=== PATIENT | male | born 1985 ===

== ENCOUNTER 2020-03-02 06:02 | Emergency (ER) | payer BC ==
[2020-03-02] MEDS ORDERED: fentaNYL 50 MCG/ML SDV IVPUSH ONE (06:23)
[2020-03-02] MEDS ORDERED: Acetaminophen 500 MG Tab PO ONE (06:23)
[2020-03-02] MEDS ORDERED: Sodium Chloride 0.9% 2.5 ML Syringe FLUSH PRN (06:23)
[2020-03-02] MEDS ORDERED: Sodium Chloride 0.9% 10 ML SDV IV PRN (06:23)
[2020-03-02] MEDS ORDERED: Ketorolac 30 MG/ML SDV IVPUSH ONE (06:23)
[2020-03-02] MEDS ORDERED: Sodium Chloride 0.9% 10 ML Syringe FLUSH PRN (06:23)
[2020-03-02] MEDS ORDERED: Lactated Ringers 1,000 ML IV ONE (06:25)
--- NOTE | 2020-03-02 06:31 | EDM.PDOC ---
<Flakita Spencerian - Last Filed: 03/02/20 07:09> ED HPI GENERAL MEDICAL PROBLEM - General Chief Complaint: Genitourinary Problem Stated Complaint: BACK PAIN, TESTICULAR PAIN Time Seen by Provider: 03/02/20 06:05 Source of Information: Reports: Patient History Limitations: Reports: No Limitations - History of Present Illness INITIAL COMMENTS - FREE TEXT/NARRATIVE: 35-year-old male past medical history of appendectomy presenting with right flank pain. Reports a 3 to 4-day history of right flank pain. Onset gradual, intermittent character. At times he is totally pain-free. Went to bed without any pain and then woke up with right flank pain around 1 hour prior to arrival, radiating into the right groin and testicle. Worse with movement, better with rest. No history of prior pain like this. Rated as 9 out of 10. Reports associated urinary difficulty. Denies fever, chills, nausea, hematuria, urethral discharge, genital swelling or lesions, lower extremity numbness or weakness, gait difficulties. No history of trauma, no history of rash. Took 2 ibuprofen tablets prior to arrival. Denies history of autoimmune disease, immunosuppression, recent steroid use, history of malignancy. right flank Pain Score (Numeric/FACES): 7 - Related Data Allergies Allergy/AdvReac Type Severity Reaction Status Date / Time No Known Allergies Allergy Verified 03/02/20 06:11 Home Meds: Home Meds Morphine Sulfate 15 mg PO QID PRN 3 Days #13 tablet 03/02/20 [Rx] Prochlorperazine Maleate [Compazine] 10 mg PO TID PRN #30 tablet 03/02/20 [Rx] Psyllium Husk (With Sugar) [Metamucil Powder] 2 tbsp PO TID 14 Days #1042 powder 03/02/20 [Rx] Sulindac [Clinoril] 200 mg PO BIDMEALS #60 tab 03/02/20 [Rx] Tamsulosin [Tamsulosin 24 Hr] 0.4 mg PO BID 7 Days #14 cap.er 03/02/20 [Rx] Past Medical History Other Gastrointestinal History: Appendectomy - Infectious Disease History Infectious Disease History: Reports: Chicken Pox - Past Surgical History GI Surgical History: Reports: Appendectomy Social & Family History - Family History Family Medical History: Noncontributory - Tobacco Use Smoking Status *Q: Former Smoker Used Tobacco, but Quit: Yes Month/Year Tobacco Last Used: 2004 - Caffeine Use Caffeine Use: Reports: Tea - Recreational Drug Use Recreational Drug Use: No ED ROS GENERAL - Review of Systems Review Of Systems: See Below Constitutional: Denies: Fever, Chills HEENT: Reports: No Symptoms Respiratory: Denies: Shortness of Breath Cardiovascular: Denies: Chest Pain GI/Abdominal: Denies: Abdominal Pain, Black Stool, Bloody Stool, Diarrhea, Hematemesis, Hematochezia, Nausea, Vomiting : Reports: Flank Pain. Denies: Discharge, Dysuria, Frequency, Hematuria, Incontinence, Urgency Musculoskeletal: Reports: No Symptoms Skin: Denies: Rash Neurological: Denies: Numbness, Tingling, Difficulty Walking, Weakness, Gait Disturbance Psychiatric: Reports: No Symptoms Hematologic/Lymphatic: Reports: No Symptoms Immunologic: Reports: No Symptoms ED EXAM, RENAL/ - Physical Exam Exam: See Below Text/Narrative:: Vital signs reviewed. Nursing notes reviewed. Constitutional: Awake, alert, non-distressed. Head: Normocephalic, atraumatic. Eyes: EOMI, conjunctiva normal, no discharge, no scleral icterus. Ears, Nose, Throat: External ears and ears normal, moist oral mucosa. Cardiovascular: 2+ radial pulse, capillary refill less than 2 seconds. Pulmonary: normal work of breathing, no accessory muscle use. Abdomen/GI: Soft, nontender, nondistended, no guarding or rigidity, no masses. No CVA tenderness. : Testes normal, penis normal. No testicular swelling, induration, lesions, or discharge. No inguinal lymphadenopathy. Musculoskeletal: No deformities. Integumentary: Appropriate color for ethnicity, warm, dry, no pallor or jaundice , no rash. No evidence of zoster. Neurologic: Alert, answering questions appropriately, normal speech, no facial droop, moving all extremities well. 5/5 strength to the bilateral lower extremities. Sensation intact light touch the bilateral lower extremities. Upgoing EHLs bilaterally. 2+ patellar reflexes bilaterally. Able to walk on heels and tiptoes, able to squat down and stand up without difficulty. Normal gait. Normal sensation to the bilateral inner thighs and genitalia. Psychiatric: Appropriate mood and affect, normal thought process. Course - Vital Signs Text/Narrative:: Patient hemodynamically stable, afebrile, well-appearing, looks nontoxic. Differential diagnosis includes but is not limited to: Kidney stone, UTI, pyelonephritis, shingles, zoster, musculoskeletal back pain, hernia, AAA, etc. IV access established, labs sent. CBC is reassuring. Awaiting other blood work and urinalysis. Given symptomatic treatment with fentanyl, Tylenol, Toradol, Zofran, IV fluids. Will plan for CT scan of the abdomen/pelvis. This is pending at time of shift change. Signed out in-person to Dr. Edwards at shift change. Last Recorded V/S: Last Vital Signs Temp 97.8 F 03/02/20 06:12 Pulse 76 03/02/20 08:04 Resp 17 03/02/20 08:04 BP 143/76 H 03/02/20 08:04 Pulse Ox 99 03/02/20 08:04 - Orders/Labs/Meds Orders: Active Orders 24 hr Category Date Time Status Pulse Oximetry [RC] ASDIRECTED Care 03/02/20 06:23 Active Sodium Chloride 0.9% [Normal Saline] Med 03/02/20 06:23 Active 10 ml IV ASDIRECTED PRN Sodium Chloride 0.9% [Saline Flush] Med 03/02/20 06:23 Active 10 ml FLUSH ASDIRECTED PRN Sodium Chloride 0.9% [Saline Flush] Med 03/02/20 06:23 Active 2.5 ml FLUSH ASDIRECTED PRN Peripheral IV Insertion Adult [OM.PC] Stat Oth 03/02/20 06:23 Ordered Medication Orders Sodium Chloride (Saline Flush) 10 ml FLUSH ASDIRECTED PRN PRN Reason: Keep Vein Open Sodium Chloride (Saline Flush) 2.5 ml FLUSH ASDIRECTED PRN PRN Reason: Keep Vein Open Sodium Chloride (Normal Saline) 10 ml IV ASDIRECTED PRN PRN Reason: IV Use Labs: Laboratory Tests 03/02/20 03/02/20 03/02/20 Range/Units 06:19 06:30 06:30 WBC 10.91 (4.0-11.0) K/uL RBC 5.18 (4.50-5.90) M/uL Hgb 16.0 (13.0-17.0) g/dL Hct 46.4 (38.0-50.0) % MCV 89.6 (80.0-98.0) fL MCH 30.9 (27.0-32.0) pg MCHC 34.5 (31.0-37.0) g/dL RDW Std Deviation 42.1 (28.0-62.0) fl RDW Coeff of Nick 13 (11.0-15.0) % Plt Count 280 (150-400) K/uL MPV 9.60 (7.40-12.00) fL Neut % (Auto) 69.6 (48.0-80.0) % Lymph % (Auto) 21.9 (16.0-40.0) % Holt % (Auto) 7.1 (0.0-15.0) % Eos % (Auto) 1.2 (0.0-7.0) % Baso % (Auto) 0.2 (0.0-1.5) % Neut # (Auto) 7.6 H (1.4-5.7) K/uL Lymph # (Auto) 2.4 (0.6-2.4) K/uL Holt # (Auto) 0.8 (0.0-0.8) K/uL Eos # (Auto) 0.1 (0.0-0.7) K/uL Baso # (Auto) 0.0 (0.0-0.1) K/uL Nucleated RBC % 0.0 /100WBC Nucleated RBCs # 0 K/uL Sodium 140 (136-148) mmol/L Potassium 3.7 (3.5-5.1) mmol/L Chloride 103 (98-107) mmol/L Carbon Dioxide 27.2 (21.0-32.0) mmol/L BUN 11 (7.0-18.0) mg/dL Creatinine 1.1 (0.8-1.3) mg/dL Est Cr Clr Drug Dosing 94.62 mL/min Estimated GFR (MDRD) > 60.0 ml/min Glucose 112 H (74-106) mg/dL Calcium 8.6 (8.5-10.1) mg/dL Urine Color YELLOW Urine Appearance CLEAR Urine pH 7.0 (5.0-8.0) Ur Specific [place] 1.020 (1.001-1.035) Urine Protein TRACE H (NEGATIVE) mg/dL Urine Glucose (UA) NEGATIVE (NEGATIVE) mg/dL Urine Ketones NEGATIVE (NEGATIVE) mg/dL Urine Occult Blood TRACE-INTACT H (NEGATIVE) Urine Nitrite NEGATIVE (NEGATIVE) Urine Bilirubin NEGATIVE (NEGATIVE) Urine Urobilinogen 0.2 (<2.0) EU/dL Ur Leukocyte Esterase NEGATIVE (NEGATIVE) Urine RBC 1-3 (0-2/HPF) Urine WBC 0-1 (0-5/HPF) Ur Epithelial Cells RARE (NONE-FEW) Urine Bacteria RARE (NEGATIVE) Urine Mucus LIGHT (NONE-MOD) Meds: Medications Generic Name Dose Route Start Last Admin Trade Name Freq PRN Reason Stop Dose Admin Sodium Chloride 10 ml 03/02/20 06:23 Saline Flush FLUSH ASDIRECTED PRN Keep Vein Open Sodium Chloride 2.5 ml 03/02/20 06:23 Saline Flush FLUSH ASDIRECTED PRN Keep Vein Open Sodium Chloride 10 ml 03/02/20 06:23 Normal Saline IV ASDIRECTED PRN IV Use Discontinued Medications Generic Name Dose Route Start Last Admin Trade Name Freq PRN Reason Stop Dose Admin Acetaminophen 1,000 mg 03/02/20 06:23 03/02/20 06:27 Tylenol Extra Strength PO 03/02/20 06:24 1,000 mg ONETIME ONE Administration Fentanyl 50 mcg 03/02/20 06:23 03/02/20 06:27 Fentanyl IVPUSH 03/02/20 06:24 50 mcg ONETIME ONE Administration Hydromorphone HCl 1 mg 03/02/20 07:54 03/02/20 08:01 Dilaudid IVPUSH 03/02/20 07:55 1 mg ONETIME ONE Administration Lactated Ringer's 1,000 mls @ 1,000 mls/hr 03/02/20 06:25 03/02/20 06:28 Ringers, Lactated IV 03/02/20 07:24 1,000 mls/hr .BOLUS ONE Administration Iopamidol 100 ml 03/02/20 07:17 03/02/20 07:18 Isovue Multipack-370 (76%) IVPUSH 03/02/20 07:18 100 ml ONETIME STA Administration Ketorolac Tromethamine 15 mg 03/02/20 06:23 03/02/20 06:27 Toradol IVPUSH 03/02/20 06:24 15 mg ONETIME ONE Administration Ondansetron HCl 4 mg 03/02/20 06:36 03/02/20 06:38 Zofran IVPUSH 03/02/20 06:37 4 mg ONETIME ONE Administration Ondansetron HCl Confirm 03/02/20 06:36 03/02/20 06:38 Zofran Administered 03/02/20 06:37 Not Given Dose 4 mg .ROUTE .STK-MED ONE Departure - Departure Time of Disposition: 07:11 Disposition: Home, Self-Care 01 Clinical Impression: Kidney stone, Renal colic on right side, Hydronephrosis, Hematuria - Discharge Information Prescriptions: Morphine Sulfate 15 mg PO QID PRN 3 Days #13 tablet PRN Reason: Pain Prochlorperazine Maleate [Compazine] 10 mg PO TID PRN #30 tablet PRN Reason: Nausea/Vomiting Psyllium Husk (With Sugar) [Metamucil Powder] 2 tbsp PO TID 14 Days #1042 powder Sulindac [Clinoril] 200 mg PO BIDMEALS #60 tab Tamsulosin [Tamsulosin 24 Hr] 0.4 mg PO BID 7 Days #14 cap.er Instructions: Renal Colic, [id number], Low-Purine Eating Plan, Kidney Stones , [id number], Hematuria, Adult Referrals: PCP,None [Primary Care Provider] - Tana Sagastume MD [Physician] - Forms: ED Department Discharge Additional Instructions: The following information is given to patients seen in the emergency department who are being discharged to home. This information is to outline your options for follow-up care. We provide all patients seen in our emergency department with a follow-up referral. The need for follow-up, as well as the timing and circumstances, are variable depending upon the specifics of your emergency department visit. If you don't have a primary care physician on staff, we will provide you with a referral. We always advise you to contact your personal physician following an emergency department visit to inform them of the circumstance of the visit and for follow-up with them and/or the need for any referrals to a consulting specialist. The emergency department will also refer you to a specialist when appropriate. This referral assures that you have the opportunity for follow-up care with a specialist. All of these measure are taken in an effort to provide you with optimal care, which includes your follow-up. Under all circumstances we always encourage you to contact your private physician who remains a resource for coordinating your care. When calling for follow-up care, please make the office aware that this follow-up is from your recent emergency room visit. If for any reason you are refused follow-up, please contact the [facility] Emergency Department at and asked to speak to the emergency department charge nurse. Thank you for coming to [facility]. Dr. Spencer and Dr. Edwards were happy to take care of you today. Your CT scan shows you have a kidney stone on the right side which is 4.5 mm. Given additional kidney stone which is 5 mm. This is caused a backup of urine into your kidney which does cause pain called hydronephrosis. You also have a trace amount of blood in your urine which is common for kidney stones. Please follow-up with the urologist. Please have your urine retested to make sure the blood goes away. In rare cases this can be an early sign of some forms of bladder cancer or other problems. If you have uncontrolled pain, fever or any other concerns please return to the emergency department. Sepsis Event Note - Evaluation Sepsis Screening Result: No Definite Risk - Focused Exam Vital Signs: Vital Signs Temp Pulse Resp BP Pulse Ox 03/02/20 08:04 76 17 143/76 H 99 03/02/20 07:29 77 134/76 96 03/02/20 06:44 59 L 18 139/83 97 03/02/20 06:35 64 16 152/88 H 96 03/02/20 06:12 97.8 F 79 17 158/102 H 97 Date Exam was Performed: 03/02/20 Time Exam was Performed: 07:09 <Fawad Edwards - Last Filed: 03/02/20 08:12> Course - Re-Assessments/Exams Free Text/Narrative Re-Assessment/Exam: 03/02/20 08:05 I have discussed the CT results with the patient letting him know that he has hydronephrosis, explaining that this condition is a backup of urine into the kidneys which causes pain, and this is caused by 2 stones, one 4.5 mm and one 5 mm in the ureter. Given literature review the patient should be able to pass these at home with medication management. We discussed return precautions including fever, uncontrolled pain, uncontrolled nausea vomiting or any other concerns. I will send him home with 13 morphine tablets. Tylenol extra strength, nausea medication, and an acetic acid derivative NSAID. His pain currently is 4 or 5 out of 10 and we will give him an additional dose of Dilaudid prior to him going home. He otherwise looks comfortable and his urine does not show evidence of infection. There is no evidence of renal function. My diagnostic impression: 1. Urolithiasis 5 mm on the right 2. Urolithiasis 4.5 mm on the right 3. Right-sided hydronephrosis 4. Hematuria likely secondary to urolithiasis Departure - Departure Time of Disposition: 08:08 - Discharge Information *PRESCRIPTION DRUG MONITORING PROGRAM REVIEWED*: No *COPY OF PRESCRIPTION DRUG MONITORING REPORT IN PATIENT CAROLYN: No Sepsis Event Note - Focused Exam Date Exam was Performed: 03/02/20 Time Exam was Performed: 08:05
[2020-03-02] MEDS ORDERED: Ondansetron 4 MG/2 ML SDV ONE (06:36)
[2020-03-02] MEDS ORDERED: Ondansetron 4 MG/2 ML SDV IVPUSH ONE (06:36)
[2020-03-02 06:55] LABS: BLOOD UREA NITROGEN,BUN 11 mg/dL (7.0-18.0); CARBON DIOXIDE,CO2 27.2 mmol/L (21.0-32.0); CHLORIDE,CL 103 mmol/L (98-107); GLUCOSE RANDOM 112 mg/dL (74-106); POTASSIUM,K 3.7 mmol/L (3.5-5.1); SODIUM,NA 140 mmol/L (136-148)
[2020-03-02] MEDS ORDERED: Iopamidol 755 MG/ML 500 ML Multipack Bottle IVPUSH STA (07:17)
--- NOTE | 2020-03-02 07:30 | CT ---
INDICATION: Right flank pain. TECHNIQUE: Contiguous axial CT images of the abdomen and pelvis are acquired after uneventful administration of IV contrast. Coronal reformations generated reviewed. COMPARISON: None available. FINDINGS: Moderate right hydronephrosis and hydroureter. There are 2 stones identified within the right ureter. There is a 4.5 mm stone identified at the level of the L4 vertebral body (axial image 88) another stone is identified more distally just before the ureterovesicular junction measuring 5 mm (axial image 134). Urinary bladder is largely decompressed, but otherwise unremarkable. There are no additional stones identified in the right kidney. On the left, there is no hydronephrosis or nephrolithiasis. The left ureter is nondistended with no suspicious calcifications along its length. Prostate size is within normal limits. Small bilateral fat containing inguinal hernias. The liver, gallbladder, spleen, pancreas, and adrenal glands are unremarkable. Upper abdomen is slightly limited by respiratory motion artifact. The appendix is not seen, but there is no secondary evidence of appendicitis. There is no evidence of bowel wall thickening or bowel obstruction. Sigmoid diverticulosis without evidence of diverticulitis. Normal caliber abdominal aorta without aneurysm or atherosclerosis. IVC and iliac veins are unremarkable. There is a small hiatal hernia. Visualized lung bases demonstrate normal heart size and no significant pulmonary opacities. IMPRESSION: 1. Moderate right hydronephrosis with 2 obstructing stones in the mid and distal right ureter. The largest is 5 mm. 2. Small hiatal hernia. Please note that all CT scans at this facility use dose modulation, iterative reconstruction, and/or weight-based dosing when appropriate to reduce radiation dose to as low as reasonably achievable. Dictated by Pedro Arellano MD @ Mar 02 2020 7:21AM Signed by Dr. Pedro Arellano @ Mar 02 2020 7:28AM
[2020-03-02] MEDS ORDERED: HYDROmorphone 2 MG/ML Syringe IVPUSH ONE (07:54)
== END 2020-03-02 08:30 | disposition home or self-care (01) ==
LOC: MW.ED 06:02
DX: N13.2 Hydronephrosis with renal and ureteral calculous obstruction (principal); R31.9 Hematuria, unspecified; Z90.49 Acquired absence of other specified parts of digestive tract; Z87.891 Personal history of nicotine dependence
CPT/HCPCS: 36415; 74177; 80048; 81001; 85025; 96374; 96375; 99284; A9270; J1170; J1885; J2405; J3010; J7120; Q9967; 99283